=== PATIENT | female | born 1975 | race Caucasian/White ===

== ENCOUNTER 2017-06-30 18:32 | Emergency (ER) | payer MEDICARE, MEDICAID ==
[2011-01-03 21:55] VITALS: BMI 28.9
== END 2017-06-30 20:24 | disposition home or self-care (01) ==
LOC: D.ER 18:32
DX: L02.31 Cutaneous abscess of buttock (principal); F90.9 Attention-deficit hyperactivity disorder, unspecified type; Z85.41 Personal history of malignant neoplasm of cervix uteri; F17.200 Nicotine dependence, unspecified, uncomplicated

== ENCOUNTER 2017-11-04 18:06 | Emergency (ER) | payer MEDICARE, MEDICAID ==
[~2017-11-04] VITALS: Ht 160 cm; Wt 90.9 kg
[2017-11-04 18:15] VITALS: Ht 160 cm; Wt 90.9 kg
[2017-11-04] MEDS ORDERED: ADDERALL 30 MG30 MG PO (18:16)
[2017-11-04] MEDS ORDERED: XANAX0.5 MG PO (18:16)
[2017-11-04] MEDS ORDERED: VIBRAMYCIN 100100 MG PO (20:47)
[2017-11-04] MEDS ORDERED: TORADOL10 MG PO (20:48)
[2017-11-04 20:55] VITALS: BP 110/67
== END 2017-11-04 20:55 | disposition home or self-care (01) ==
LOC: D.ER 18:06
DX: H66.42 Suppurative otitis media, unspecified, left ear (principal); F17.200 Nicotine dependence, unspecified, uncomplicated

== ENCOUNTER 2018-10-29 20:15 | Emergency (ER) | payer MEDICARE, MEDICAID ==
[~2018-10-29] VITALS: Ht 160 cm; Wt 90.9 kg
[~2018-10-29 20:15] MED LIST: ADDERALL 30 MG30 MG PO; TORADOL10 MG PO; VIBRAMYCIN 100100 MG PO; XANAX0.5 MG PO
[2018-10-29 20:32] VITALS: BP 158/92; Ht 160 cm; Wt 90.9 kg
[2018-10-29 21:08] LABS: APPEARANCE CLEAR (CLEAR); BILIRUBIN NEGATIVE (NEGATIVE); COLOR YELLOW (YELLOW); GLUCOSE NEGATIVE (NEGATIVE); KETONE NEGATIVE (NEGATIVE); NITRITE NEGATIVE (NEGATIVE); PROTEIN NEGATIVE (NEGATIVE); UROBILINOGEN NORMAL (NORMAL)
[2018-10-29 21:11] LABS: BACTERIA FEW /hpf (NONE SEEN); EPITHELIAL CELLS 0-5 /hpf (0-5); RED CELLS - URINE OCC /hpf (0-5); WHITE CELLS - URINE 0-5 /hpf (0-5)
[2018-10-29 21:24] LABS: BASOPHILS 0.2 % (0-2); EOSINOPHILS 2.1 % (0-7); HEMATOCRIT 39.2 % (36.0-48.0); HEMOGLOBIN 13.5 g/dL (12-16); IMMATURE GRANULOCYTES 0.3 % (0-5); LYMPHOCYTES 36.4 % (15-50); MCH 31.6 pg (26.0-34.0); MCHC 34.4 g/dL (31.0-37.0); MCV 91.8 fL (80.0-100.0); MEAN PLATELET VOLUME 9.1 fL (7.4-10.4); MONOCYTES 5.3 % (2-11); NEUTROPHILS 55.7 % (40-80); PLATELET COUNT 333 10x3/uL (130-400); RBC 4.27 10x6/uL (4.00-5.40); RDW 13.2 % (11.5-14.5); WBC 13.1 10x3/uL (4.8-10.8)
[2018-10-29 21:39] LABS: ALBUMIN 3.4 g/dL (3.4-5.0); ALKALINE PHOSPHATASE 106 U/L (46-116); ALT (SGPT) 38 U/L (10-68); BILIRUBIN - TOTAL 0.31 mg/dL (0.2-1.3); CALC OSMOLALITY 275 mosm/kg (275-300); CALCIUM 8.6 mg/dL (8.5-10.1); CARBON DIOXIDE 28.1 mmol/L (21.0-32.0); CHLORIDE - SERUM 102 mmol/L (98-107); CREATININE - SERUM 1.1 mg/dL (0.6-1.3); GLUCOSE 113 mg/dL (74-106); POTASSIUM - SERUM 3.4 mmol/L (3.5-5.1); PROTEIN - SERUM 7.6 g/dL (6.4-8.2); SODIUM 138 mmol/L (136-145); UREA NITROGEN 11 mg/dL (7-18); eGFR NON AFRICAN AMERICAN 57 mL/min (90-120)
[2018-10-29 21:42] LABS: AMYLASE - SERUM 35 U/L (25-115); LIPASE 108 U/L (73-393)
[2018-10-29 21:45] LABS: TROPONIN-I < 0.017 ng/mL (0.000-0.060)
== END 2018-10-29 21:27 | disposition left against medical advice (07) ==
LOC: D.ER 20:15
PROVIDERS: Family Medicine
DX: Z20.2 Contact with and (suspected) exposure to infections with a predominantly sexual mode of transmission (principal); L73.2 Hidradenitis suppurativa; K21.9 Gastro-esophageal reflux disease without esophagitis; F32.9 Major depressive disorder, single episode, unspecified; F17.210 Nicotine dependence, cigarettes, uncomplicated

== ENCOUNTER 2019-04-13 08:19 | Emergency (ER) | payer MEDICARE, MEDICAID ==
[~2019-04-13] VITALS: Ht 160 cm; Wt 94.1 kg
[2019-04-13 08:35] VITALS: Ht 160 cm; Wt 94.1 kg
[2019-04-13] MEDS ORDERED: MOBIC7.5 MG PO (09:34)
[2019-04-13 09:40] VITALS: BP 140/88
== END 2019-04-13 09:41 | disposition home or self-care (01) ==
LOC: D.ER 08:19
DX: S93.601A Unspecified sprain of right foot, initial encounter (principal); W19.XXXA Unspecified fall, initial encounter; Y93.9 Activity, unspecified; Y92.9 Unspecified place or not applicable

== ENCOUNTER 2020-10-27 20:56 | Emergency (ER) | payer MEDICARE, MEDICAID ==
[~2020-10-27] VITALS: Ht 160 cm; Wt 92.3 kg
[~2020-10-27 20:56] MED LIST changes: +MOBIC7.5 MG PO
[2020-10-27 21:02] VITALS: BP 117/67; Ht 160 cm; Wt 92.3 kg
[2020-10-27 21:54] LABS: BILIRUBIN NEGATIVE (NEGATIVE); KETONE NEGATIVE mg/dL (< 1+); NITRITE NEGATIVE (NEGATIVE); UROBILINOGEN NORMAL mg/dL (< 2)
[2020-10-27 21:57] LABS: ANION GAP 12.3 mmol/L (8-16); BASOPHILS 1.1 % (0-2); CALCIUM 8.5 mg/dL (8.5-10.1); CARBON DIOXIDE 25.4 mmol/L (21.0-32.0); EOSINOPHILS 2.5 % (0-7); HEMATOCRIT 36.2 % (36.0-48.0); HEMOGLOBIN 12.5 g/dL (12-16); LYMPHOCYTES 22.1 % (15-50); MCH 31.6 pg (26.0-34.0); MCHC 34.5 g/dL (31.0-37.0); MCV 91.6 fL (80.0-100.0); MEAN PLATELET VOLUME 7.6 fL (7.4-10.4); MONOCYTES 14.5 % (2-11); NEUTROPHILS 59.8 % (40-80); POTASSIUM - SERUM 3.7 mmol/L (3.5-5.1); RBC 3.96 10x6/uL (4.00-5.40); WBC 6.7 10x3/uL (4.8-10.8)
[2020-10-27 22:01] LABS: PLATELET COUNT 424 10x3/uL (130-400)
[2020-10-27 22:03] LABS: ALBUMIN 3.2 g/dL (3.4-5.0); BILIRUBIN - TOTAL 0.13 mg/dL (0.2-1.3); PROTEIN - SERUM 7.1 g/dL (6.4-8.2)
[2020-10-27 23:49] LABS: HCG URINE NEGATIVE (NEGATIVE)
[2020-10-27 23:55] LABS: UDS - AMPHET POSITIVE QUAL (NEGATIVE); UDS - BARB NEGATIVE QUAL (NEGATIVE); UDS - BENZO NEGATIVE QUAL (NEGATIVE); UDS - COCAINE NEGATIVE QUAL (NEGATIVE); UDS - OPIATE NEGATIVE QUAL (NEGATIVE); UDS - PCP NEGATIVE QUAL (NEGATIVE); UDS - THC POSITIVE QUAL (NEGATIVE)
[2020-10-28] MEDS ORDERED: CLEOCIN HCL300 MG PO (00:27)
== END 2020-10-28 01:59 | disposition home or self-care (01) ==
LOC: D.ER 20:56
PROVIDERS: Emergency Medicine
DX: R53.1 Weakness (principal); R42 Dizziness and giddiness; F12.10 Cannabis abuse, uncomplicated; F15.10 Other stimulant abuse, uncomplicated; S11.93XA Puncture wound without foreign body of unspecified part of neck, initial encounter; X58.XXXA Exposure to other specified factors, initial encounter; Z48.00 Encounter for change or removal of nonsurgical wound dressing